=== PATIENT | male | born 1960 | race Caucasian/White ===

== ENCOUNTER 2021-07-22 12:13 | Inpatient (IN) | payer OTHER ==
[2021-07-22] MEDS ORDERED: SODIUM CHLORIDE 0.9% 1,000 ML IV STA (12:34)
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
[2021-07-22 12:54] LABS: Basophils # (A) 0.1 k/uL (0-0.2); Basophils % (A) 1 %; Eosinophils # (A) 0.1 k/uL (0-0.7); Eosinophils % (A) 1 %; HCT 38.4 % (39.0-53.0); Lymphocytes # (A) 1.4 k/uL (1.0-4.8); Lymphocytes % (A) 10 %; MCHC 31.3 g/dL (31.0-37.0); MCV 99.1 fL (80.0-100.0); Mean Platelet Volume 6.9; Monocytes # (A) 0.8 k/uL (0-1.0); Monocytes % (A) 6 %; Neutrophils % (A) 81 %; Platelet Count 430 k/uL (150-450); RBC 3.88 m/uL (4.30-5.90); WBC 13.7 k/uL (3.8-10.6)
[2021-07-22 13:04] LABS: ALT 15 U/L (4-49); AST 13 U/L (17-59); African American GFR (CKD) >90 (>60 ml/min/1.73 sqM); Albumin 3.7 g/dL (3.5-5.0); Alkaline Phosphatase 92 U/L (38-126); Anion Gap 8 mmol/L; Blood Urea Nitrogen 15 mg/dL (9-20); Calcium 9.6 mg/dL (8.4-10.2); Carbon Dioxide 26 mmol/L (22-30); Chloride 101 mmol/L (98-107); Glucose 108 mg/dL (74-99); Non-African American GFR(CKD) >90 (>60 ml/min/1.73 sqM); Sodium 135 mmol/L (137-145); Total Bilirubin 0.6 mg/dL (0.2-1.3); Total Protein 6.5 g/dL (6.3-8.2)
--- NOTE | 2021-07-22 14:08 | XR ---
EXAMINATION TYPE: XR tibia fibula LT DATE OF EXAM: 07/22/2021 CLINICAL HISTORY: Injury with pain and focal wound. TECHNIQUE: Two views of the left leg are obtained. COMPARISON: None. FINDINGS: There is intramedullary leah with 2 proximal fixating screws and 2 distal transverse fixatio n screws through healing fracture of the mid to distal tibial diaphysis. Alignment is satisfactory. S ome adjacent soft tissue calcifications are present medially. Mild focal soft tissue swelling anterio rly at this level. There is healing displaced fracture mid shaft of the fibular diaphysis. No obvious bony destruction to suggest acute osteomyelitis. Visualized portion of the ankle joints appear withi n normal limits. IMPRESSION: As above.
[2021-07-22] MEDS ORDERED: HYDROmorphone 0.5 MG/0.5 ML SYRINGE IVP STA (14:31)
[2021-07-22] MEDS ORDERED: VANCOMYCIN IV PER PHARMACY 1 EACH MISC MISCELLANE PRN ×2 (16:15→16:59)
[2021-07-22] MEDS ORDERED: ACETAMINOPHEN TAB 325 MG TAB PO PRN (16:16)
[2021-07-22] MEDS ORDERED: IBUPROFEN 400 MG TAB PO PRN (16:16)
[2021-07-22] MEDS ORDERED: NALOXONE 0.4 MG/ML 1 ML VIAL IV PRN (16:16)
[2021-07-22] MEDS ORDERED: VANCOMYCIN 1,000 MG in SODIUM CHLORIDE 0.9% 250 ML IVPB STA (16:21)
[2021-07-22] MEDS ORDERED: PIPERACILLIN-TAZOBACTAM 3.375 GM in SODIUM CHLORIDE 0.9% 100 ML IVPB STA (16:36)
[2021-07-22] MEDS ORDERED: ALPRAZolam 0.25 MG TAB PO PRN (16:58)
[2021-07-22] MEDS ORDERED: TEMAZEPAM 15 MG CAP PO PRN (16:58)
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
[2021-07-22] MEDS: haloperidoL 5 MG TAB PO SCH (22:02)
[2021-07-22] MEDS: NICOTINE 14MG/24HR PATCH TRANSDERM SCH (22:03)
[2021-07-22] MEDS: HEPARIN SODIUM,PORCINE/PF 5,000 UNIT/0.5 ML SYRINGE SQ SCH (22:03)
[2021-07-22] MEDS: HYDROcodone/APAP 5-325MG 1 EACH TAB PO PRN (22:14)
[2021-07-23] MEDS ORDERED: PIPERACILLIN-TAZOBACTAM 3.375 GM in SODIUM CHLORIDE 0.9% 100 ML IVPB SCH ×2
[2021-07-23] MEDS: CEFEPIME 2 GM in SODIUM CHLORIDE 0.9% 100 ML IVPB SCH ×4 (00:08→23:33)
[2021-07-23] MEDS: VANCOMYCIN 1,000 MG in SODIUM CHLORIDE 0.9% 250 ML IVPB SCH ×2 (05:36→16:44)
[2021-07-23] MEDS: HYDROcodone/APAP 5-325MG 1 EACH TAB PO PRN ×3 (08:06→20:41)
[2021-07-23] MEDS: PANTOPRAZOLE 40 MG TABLET PO SCH (08:08)
[2021-07-23] MEDS: HEPARIN SODIUM,PORCINE/PF 5,000 UNIT/0.5 ML SYRINGE SQ SCH ×2 (08:08→20:38)
[2021-07-23] MEDS: NICOTINE 14MG/24HR PATCH TRANSDERM SCH (08:08)
[2021-07-23] MEDS: haloperidoL 5 MG TAB PO SCH ×2 (08:08→20:39)
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
[2021-07-23] MEDS: MULTIVITAMINS, THERA 1 EACH TAB PO SCH (11:29)
[2021-07-23 12:31] LABS: African American GFR (CKD) 118.9 (60.0-200.0); Anion Gap 18.7 mmol/L (10.00-18.00); BUN/Creat Ratio 18.57 Ratio (12.00-20.00); Calcium 8.8 mg/dL (8.7-10.3); Carbon Dioxide 16.3 mmol/L (20.0-27.5); Non-African American GFR(CKD) 102.6 (60.0-200.0); Potassium 3.5 mmol/L (3.5-5.5)
[2021-07-23 13:29] VITALS: BMI 17.1
[2021-07-23 13:41] LABS: Basophils # (A) 0.07 X 10*3/uL (0.00-0.10); Basophils % (A) 0.7 %; Eosinophils # (A) 0.11 X 10*3/uL (0.04-0.35); Eosinophils % (A) 1.1 %; HCT 33.3 % (39.6-50.0); HGB 10.5 g/dL (13.0-17.0); Lymphocytes # (A) 1.61 X 10*3/uL (0.90-5.00); Lymphocytes % (A) 15.5 %; MCH 30.6 pg (27.0-32.0); MCHC 31.5 g/dL (32.0-37.0); MCV 97.1 fL (80.0-97.0); Mean Platelet Volume 9.7 fL (9.5-12.2); Monocytes # (A) 0.55 X 10*3/uL (0.20-1.00); Monocytes % (A) 5.3 %; Neutrophils # (A) 7.98 X 10*3/uL (1.80-7.70); Neutrophils % (A) 76.9 %; Platelet Count 413 X 10*3/uL (140-440); RBC 3.43 X 10*6/uL (4.40-5.60); RDW 14.6 % (11.5-14.5); WBC 10.37 X 10*3/uL (4.50-10.00)
[2021-07-23 15:06] LABS: Erythrocyte Sedimentation Rate 35 mm/Hr (0-20)
--- NOTE | 2021-07-23 16:48 | PN ---
PROGRESS NOTE DATE OF SERVICE: 07/23/2021 REASON FOR FOLLOWUP: Left lower extremity wound and cellulitis. INTERVAL HISTORY: The patient is afebrile. The patient is currently breathing comfortably. Pain to the left leg is slightly decreased. No chest pain, shortness of breath or cough. No abdominal pain or diarrhea. PHYSICAL EXAMINATION: Blood pressure 120/82 with a pulse of 90, temperature 98. He is 98% on room air. General description is a middle-aged male lying in bed in no distress. Respiratory system: Unlabored breathing, clear to auscultation anteriorly. Heart S1, S2. Regular rate and rhythm. Abdomen soft, no tenderness. Left leg is currently dressed, no obvious drainage on the dressing. LABS: Hemoglobin is 10.5, white count 10.37, creatinine 0.7. DIAGNOSTIC IMPRESSION AND PLAN: Patient with left leg wound, necrotic with recent extensive surgery in the outside facility with underlying necrotic tissue, unable determine the depth of this infection and deep cultures. Continue vancomycin and cefepime and monitor clinical course closely. MMODL / IJN: [id number] / MTDD
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
[2021-07-24] MEDS: VANCOMYCIN 1,000 MG in SODIUM CHLORIDE 0.9% 250 ML IVPB SCH ×2 (04:30→17:17)
[2021-07-24] MEDS: HYDROmorphone 0.5 MG/0.5 ML SYRINGE IVP PRN ×2 (04:53→20:08)
[2021-07-24] MEDS: PANTOPRAZOLE 40 MG TABLET PO SCH (06:49)
[2021-07-24] MEDS: HEPARIN SODIUM,PORCINE/PF 5,000 UNIT/0.5 ML SYRINGE SQ SCH ×2 (06:49→20:09)
[2021-07-24] MEDS: NICOTINE 14MG/24HR PATCH TRANSDERM SCH (06:51)
[2021-07-24] MEDS: CEFEPIME 2 GM in SODIUM CHLORIDE 0.9% 100 ML IVPB SCH ×2 (06:52→16:12)
[2021-07-24] MEDS ORDERED: PROPOFOL 10 MG/ML 20 ML VIAL IV ONE (08:26)
[2021-07-24] MEDS ORDERED: MIDAZOLAM 2 MG/2 ML VIAL ONE (08:26)
[2021-07-24] MEDS ORDERED: fentaNYL (PF) 50 MCG/ML 2 ML AMP ONE (08:26)
[2021-07-24] MEDS ORDERED: SUCCINYLCHOLINE CHLORIDE VIAL 200 MG/10 ML VIAL IV ONE (08:26)
[2021-07-24] MEDS ORDERED: IV FLUID CONTINUATION 900 ML IV ONE (08:26)
[2021-07-24] MEDS ORDERED: LIDOCAINE 1% INJ 10MG/ML (20 ML MDV) ONE (08:26)
[2021-07-24] MEDS ORDERED: ceFAZolin 3,000 MG in SODIUM CHLORIDE 0.9% IRRIGATIO 3,000 ML IRRIGATION ONE (08:46)
[2021-07-24] MEDS: haloperidoL 5 MG TAB PO SCH ×2 (10:06→20:09)
[2021-07-24] MEDS: MULTIVITAMINS, THERA 1 EACH TAB PO SCH (10:06)
[2021-07-24] MEDS: HYDROcodone/APAP 5-325MG 1 EACH TAB PO PRN (14:57)
[2021-07-24] MEDS ORDERED: VANCOMYCIN TROUGH DUE 1 EACH MISC MISCELLANE ONE (16:00)
[2021-07-24] MEDS: THIAMINE 100 MG TAB PO SCH (16:12)
[2021-07-24] MEDS: FOLIC ACID 1 MG TAB PO SCH (16:12)
[2021-07-24 17:40] LABS: African American GFR (CKD) >90 (>60 ml/min/1.73 sqM); Anion Gap 8 mmol/L; Blood Urea Nitrogen 20 mg/dL (9-20); Calcium 9.3 mg/dL (8.4-10.2); Carbon Dioxide 27 mmol/L (22-30); Chloride 101 mmol/L (98-107); Glucose 124 mg/dL (74-99); Non-African American GFR(CKD) 89 (>60 ml/min/1.73 sqM); Sodium 136 mmol/L (137-145)
--- NOTE | 2021-07-24 18:16 | PN ---
PROGRESS NOTE DATE OF SERVICE: 07/24/2021 This 60-year-old gentleman who was admitted with significant infection of the left leg area had incision and drainage and wound VAC by Orthopedic Surgery. No chest pain. No palpitations. No fever. PHYSICAL EXAMINATION: Alert and oriented x3. Pulse 96, blood pressure 130/70, respiration 17, temperature 97.8, pulse ox 98% on room air. HEENT: Conjunctivae normal. Oral mucosa moist. NECK: No jugular venous distention. No lymph node enlargement. CARDIOVASCULAR: S1, S2, muffled. No S3, no S4, RESPIRATORY: Diminished breath sounds at the bases. ABDOMEN: Soft, nontender. LEGS: Left leg infection and abscess status post incision and drainage and wound VAC.. LABS: WBC 10.37, hemoglobin 10.5. CRP is 13. ASSESSMENT: 1. Left leg ulcer with possible osteomyelitis with early sepsis with MSSA and gram negative bacilli, present on admission, status post debridement and as well as wound VAC placement. 2. Severe pain. 3. History of recent open tibial femoral fracture and surgery. 4. Increased WBC. 5. Anemia, normocytic. 6. Hyponatremia. 7. History nicotine dependence. 8. History of narcolepsy. 9. Mild protein-calorie malnutrition, BMI of 17.6. 10.FULL CODE. RECOMMENDATIONS: Recommend to continue current management, continue symptomatic treatment. Otherwise, at this time I would also recommend continue the antibiotics. The culture is showing Staph aureus and gram-negative bacilli. Guarded prognosis. Further recommendations to follow. MMODL / IJN: [id number] /
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
--- NOTE | 2021-07-24 20:22 | PN ---
PROGRESS NOTE DATE OF SERVICE: 07/24/2021 REASON FOR FOLLOWUP: Left leg wound and a question of underlying osteomyelitis. INTERVAL HISTORY: The patient was taken to the OR. The patient is status post debridement of left leg wound. The depth of infection currently not available; operative report is pending. Patient tolerated the procedure. Has been complaining of some headache. No chest pain, shortness of breath or cough. No abdominal pain or diarrhea. PHYSICAL EXAMINATION: Blood pressure 113/75, pulse of 96, temperature 97.8. He is 98% on room air. General description is a middle-aged male lying in bed in no distress. Respiratory system: Unlabored breathing. Clear to auscultation anteriorly. Heart S1, S2. Regular rate and rhythm. Abdomen soft, no tenderness. Left leg wound is currently covered with a wound V.A.C. LABS: Creatinine 0.93. Vancomycin trough is low. DIAGNOSTIC IMPRESSION AND PLAN: Patient with left leg wound infection with recent extensive surgery for left leg infection. Will wait for the operative report to determine the depth of infection and will wait for the deep culture to finalize to determine his discharge antibiotics. He will likely need a PICC line for outpatient IV antibiotics and local wound care. Continue supportive care. MMODL / IJN: [id number] /
[2021-07-25] MEDS: CEFEPIME 2 GM in SODIUM CHLORIDE 0.9% 100 ML IVPB SCH ×2 (00:20→08:05)
[2021-07-25] MEDS: HYDROmorphone 0.5 MG/0.5 ML SYRINGE IVP PRN ×2 (03:18→06:06)
[2021-07-25] MEDS ORDERED: VANCOMYCIN 1,250 MG in SODIUM CHLORIDE 0.9% 250 ML IVPB SCH (06:00)
[2021-07-25 06:05] LABS: African American GFR (CKD) >90 (>60 ml/min/1.73 sqM); Anion Gap 6 mmol/L; Blood Urea Nitrogen 20 mg/dL (9-20); Calcium 9.5 mg/dL (8.4-10.2); Carbon Dioxide 27 mmol/L (22-30); Chloride 101 mmol/L (98-107); Glucose 96 mg/dL (74-99); Non-African American GFR(CKD) >90 (>60 ml/min/1.73 sqM); Potassium 4.8 mmol/L (3.5-5.1); Sodium 134 mmol/L (137-145)
[2021-07-25] MEDS: MULTIVITAMINS, THERA 1 EACH TAB PO SCH (08:05)
[2021-07-25] MEDS: PANTOPRAZOLE 40 MG TABLET PO SCH (08:05)
[2021-07-25] MEDS: haloperidoL 5 MG TAB PO SCH ×2 (08:05→21:01)
[2021-07-25] MEDS: FOLIC ACID 1 MG TAB PO SCH (08:05)
[2021-07-25] MEDS: THIAMINE 100 MG TAB PO SCH (08:06)
[2021-07-25] MEDS: HEPARIN SODIUM,PORCINE/PF 5,000 UNIT/0.5 ML SYRINGE SQ SCH ×2 (08:06→21:01)
[2021-07-25] MEDS: NICOTINE 14MG/24HR PATCH TRANSDERM SCH (08:06)
[2021-07-25] MEDS: HYDROcodone/APAP 5-325MG 1 EACH TAB PO PRN ×2 (12:32→19:20)
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
--- NOTE | 2021-07-25 17:26 | PN ---
PROGRESS NOTE DATE OF SERVICE: 07/25/2021. This 60-year-old gentleman who was admitted with left leg ulcer and possible osteomyelitis and had debridement and as well as wound VAC. The cultures are showing multiple organisms including Staph aureus and Klebsiella . The Staph aureus is MSSA. No chest pain. No palpitations. No fever. PHYSICAL EXAMINATION: Alert and oriented times three. Pulse is 89, blood pressure 130/79, respirations 18, temperature 97.9, pulse ox 97% on room air. HEENT: Conjunctivae normal. Neck: No JVD. Cardiovascular: S1, S2 muffled. Respiratory System: Breath sounds diminished at the bases. Scattered rhonchi. Abdomen: Soft. Legs: Left leg ulcer and wound VAC present. LABS: WBC 10.37, sodium is 134. Other labs are noted. ASSESSMENT: 1. Left leg ulcer with osteomyelitis with early sepsis with MSSA and as well as Klebsiella oxytoca, present on admission, status post debridement and as well as wound VAC placement. 2. Severe pain. 3. History of recent open tibial femoral fracture and surgery. 4. Increased WBC. 5. Anemia, normocytic. 6. Hyponatremia. 7. History of nicotine dependence. 8. History of narcolepsy. 9. Mild protein-calorie malnutrition, BMI of 17.6. 10.FULL CODE. RECOMMENDATIONS AND DISCUSSION: Recommend to continue current medications, management and symptomatic treatment. Otherwise, continue the antibiotics. Closely follow with Infectious Disease and Orthopedic surgery. Prognosis guarded because of multiple complex medical issues. Further recommendations to follow. MMODL / IJN: [id number] /
[2021-07-26] MEDS: HEPARIN SODIUM,PORCINE/PF 5,000 UNIT/0.5 ML SYRINGE SQ SCH ×2 (08:36→19:57)
[2021-07-26] MEDS: FOLIC ACID 1 MG TAB PO SCH (08:37)
[2021-07-26] MEDS: THIAMINE 100 MG TAB PO SCH (08:37)
[2021-07-26] MEDS: PANTOPRAZOLE 40 MG TABLET PO SCH (08:37)
[2021-07-26] MEDS: NICOTINE 14MG/24HR PATCH TRANSDERM SCH (08:37)
[2021-07-26] MEDS: MULTIVITAMINS, THERA 1 EACH TAB PO SCH (08:37)
[2021-07-26] MEDS: HYDROcodone/APAP 5-325MG 1 EACH TAB PO PRN ×3 (08:37→19:57)
[2021-07-26] MEDS: haloperidoL 5 MG TAB PO SCH ×2 (08:38→19:57)
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
--- NOTE | 2021-07-26 12:53 | P.PN ---
Progress Note - Text Progress Note Date: 07/25/21 REASON FOR FOLLOWUP: Left leg wound and a question of underlying osteomyelitis. INTERVAL HISTORY: The patient is afebrile. pain to the left leg is currently controlled, No chest pain, shortness of breath or cough. No abdominal pain or diarrhea. PHYSICAL EXAMINATION: Blood pressure 110/70, pulse of 86, temperature 97.8. He is 98% on room air. General description is a middle-aged male lying in bed in no distress. Respiratory system: Unlabored breathing. Clear to auscultation anteriorly. Heart S1, S2. Regular rate and rhythm. Abdomen soft, no tenderness. Left leg wound is currently covered with a wound V.A.C. LABS: cultures with MSSA and Klebsiella. DIAGNOSTIC IMPRESSION AND PLAN: Patient with left leg wound infection with recent extensive surgery for left leg fracture. s/p debridment with wound not extending to the bone or any exposed hardware, cultures with MSSA and Klebsiella , Antibiotics will be switched to cefazolin , He will likely need a PICC line for outpatient IV antibiotics and local wound care. Continue supportive care.
--- NOTE | 2021-07-26 15:14 | P.PN ---
Subjective Progress Note Date: 07/26/21 07/26/2021 Patient evaluated today resting in bed. PT OT consultation recommends patient to go to subacute rehab on discharge. He does have quite a bit of pain to the left mercedes he is receiving [place] every 4 hours, Dilaudid every 3 hours as well as Motrin every 6 as needed. Wound VAC was changed today. Patient will get a PICC line either today or tomorrow and will hopefully [facility]. Sodium today 134, encourage oral intake preferably water. Blood pressure 122/88, afebrile, heart rate 89, 96% on room air. Wound care instructions are to change Sunday, negative pressure with black foam. Alternatively if wound VAC is not available for discharge planning obstructive silver, saline moist gauze, dry gauze, rolled gauze and secure paper tape as recommended by wound care. Patient is being followed closely by orthopedic and ID services. ROS Constitutional: Denied any fatigue denied any fever. Cardio vascular: denied any chest pain, palpitations Gastrointestinal denied any nausea vomiting Pulmonary: Denied any shortness of breath cough Neurologic denied any new focal deficits All inpatient medications were reviewed and appropriate changes in these m edications as dictated in the interval history and assessment and plan. PHYSICAL EXAMINATION: GENERAL: The patient is alert and oriented x3, not in any acute distress. Well developed, well nourished. HEENT: Pupils are round and equally reacting to light. EOMI. No scleral icterus. No conjunctival pallor. Normocephalic, atraumatic. No pharyngeal erythema. No thyromegaly. CARDIOVASCULAR: S1 and S2 present. No murmurs, rubs, or gallops. PULMONARY: Chest is clear to auscultation, no wheezing or crackles. ABDOMEN: Soft, nontender, nondistended, normoactive bowel sounds. No palpable organomegaly. MUSCULOSKELETAL: No joint swelling or deformity. EXTREMITIES: No cyanosis, clubbing, no peripheral edema to left lower extremity positive pulses NEUROLOGICAL: Gross neurological examination did not reveal any focal deficits. SKIN: Wound VAC present to left mercedes Assessment and plan Assessment Left foot ulcer with osteomyelitis with early sepsis with MSSA and Klebsiella oxytoca, present on admission, status post debridement and wound VAC placement Severe pain, pain management in place History of recent open tib femoral fracture and surgery Leukocytosis secondary to infection Hyponatremia probably due to poor oral intake History of narcolepsy GI prophylaxis Protonix DVT prophylaxis subcu heparin Full code Plan Take insertion Continue IV antibiotics Continue pain management Encourage oral intake Continue all other supportive care Discharge to rehab tomorrow Objective - Vital Signs Vital signs: Vital Signs Temp 97.9 F 07/26/21 07:27 Pulse 89 07/26/21 12:39 Resp 16 07/26/21 12:39 BP 139/90 07/26/21 07:27 Pulse Ox 98 07/26/21 07:27 Intake & Output 07/25/21 07/26/21 07/26/21 18:59 06:59 18:59 Intake Total 1080 Output Total 850 900 Balance 230 -900 Weight 58.967 kg Intake: Oral 1080 Output: Urine 850 900 Other: Voiding Method Urinal Urinal # Voids 1 - Labs CBC & Chem 7: 07/23/21 08:21 07/25/21 04:01 Labs: Microbiology - Last 24 Hours (Table) 07/24/21 08:43 Gram Stain - Final Leg - Left Wound Culture - Final Staphylococcus aureus 07/24/21 08:43 Gram Stain - Final Leg - Left Wound Culture - Final Staphylococcus aureus 07/22/21 12:30 Blood Culture - Preliminary Blood No Growth after 72 hours 07/22/21 12:15 Blood Culture - Preliminary Blood No Growth after 72 hours 07/22/21 12:38 Gram Stain - Final Leg - Left Wound Culture - Final Staphylococcus aureus Klebsiella oxytoca
--- NOTE | 2021-07-26 23:17 | P.PN ---
Progress Note - Text Progress Note Date: 07/26/21 REASON FOR FOLLOWUP: Left leg wound and a question of underlying osteomyelitis. INTERVAL HISTORY: The patient is afebrile. pain to the left leg is currently controlled, No chest pain, shortness of breath or cough. No abdominal pain or diarrhea. PHYSICAL EXAMINATION: Blood pressure 110/70, pulse of 86, temperature 97.8. He is 98% on room air. General description is a middle-aged male lying in bed in no distress. Respiratory system: Unlabored breathing. Clear to auscultation anteriorly. Heart S1, S2. Regular rate and rhythm. Abdomen soft, no tenderness. Left leg wound is currently covered with a wound V.A.C. LABS: cultures with MSSA and Klebsiella. DIAGNOSTIC IMPRESSION AND PLAN: Patient with left leg wound infection with recent extensive surgery for left leg fracture. s/p debridment with wound not extending to the bone or any exposed hardware, cultures with MSSA and Klebsiella , Antibiotics will be switched to cefazolin , He will likely need a PICC line for outpatient IV antibiotics and local wound care. Continue supportive care.
--- NOTE | 2021-07-26 23:19 | P.PN ---
Progress Note - Text Progress Note Date: 07/26/21 REASON FOR FOLLOWUP: Left leg wound and a question of underlying osteomyelitis. INTERVAL HISTORY: The patient remains to be afebrile. The patient pain to the left leg is currently controlled, the patient denies chest pain, shortness of breath or cough. No abdominal pain or diarrhea. PHYSICAL EXAMINATION: Blood pressure 1:15/60, pulse of 86, temperature 97.8. He is 98% on room air. General description is a middle-aged male lying in bed in no distress. Respiratory system: Unlabored breathing. Clear to auscultation anteriorly. Heart S1, S2. Regular rate and rhythm. Abdomen soft, no tenderness. Left leg wound is currently covered with a wound V.A.C. LABS: cultures with MSSA and Klebsiella. White count has normalized DIAGNOSTIC IMPRESSION AND PLAN: Patient with left leg wound infection with recent extensive surgery for left leg fracture. s/p debridment with wound not extending to the bone or any exposed hardware, cultures with MSSA and Klebsiella , patient is currently covered with cefazolin, Plan is for 2-3 weeks of IV cefazolin, local wound care with a wound vac to close outpatient follow-up
[2021-07-27] MEDS: HYDROcodone/APAP 5-325MG 1 EACH TAB PO PRN ×2 (04:01→15:03)
[2021-07-27] MEDS ORDERED: THIAMINE 100 MG TAB ONE (09:00)
[2021-07-27] MEDS ORDERED: haloperidoL 5 MG TAB ONE (09:00)
[2021-07-27] MEDS ORDERED: HEPARIN SODIUM,PORCINE 5,000 UNIT/ML 1 ML VIAL ONE (09:00)
[2021-07-27] MEDS ORDERED: PANTOPRAZOLE 40 MG TABLET PO ONE (09:00)
[2021-07-27] MEDS ORDERED: NICOTINE 14MG/24HR PATCH TRANSDERM ONE (09:00)
[2021-07-27] MEDS ORDERED: FOLIC ACID 1 MG TAB ONE (09:00)
[2021-07-27 09:33] LABS: Basophils # (A) 0.07 X 10*3/uL (0.00-0.10); Basophils % (A) 0.9 %; Eosinophils # (A) 0.45 X 10*3/uL (0.04-0.35); Eosinophils % (A) 5.7 %; HCT 38.1 % (39.6-50.0); HGB 11.8 g/dL (13.0-17.0); Lymphocytes # (A) 1.46 X 10*3/uL (0.90-5.00); Lymphocytes % (A) 18.6 %; MCH 29.6 pg (27.0-32.0); MCV 95.7 fL (80.0-97.0); Mean Platelet Volume 9.4 fL (9.5-12.2); Monocytes # (A) 0.65 X 10*3/uL (0.20-1.00); Monocytes % (A) 8.3 %; Neutrophils # (A) 5.21 X 10*3/uL (1.80-7.70); Neutrophils % (A) 66.2 %; Platelet Count 493 X 10*3/uL (140-440); RBC 3.98 X 10*6/uL (4.40-5.60); RDW 13.8 % (11.5-14.5); WBC 7.86 X 10*3/uL (4.50-10.00)
[2021-07-27 11:39] LABS: African American GFR (CKD) 114.2 (60.0-200.0); Anion Gap 12.6 mmol/L (10.00-18.00); BUN/Creat Ratio 25.65 Ratio (12.00-20.00); Blood Urea Nitrogen 19.8 mg/dL (9.0-27.0); Calcium 10.1 mg/dL (8.7-10.3); Carbon Dioxide 25.7 mmol/L (20.0-27.5); Non-African American GFR(CKD) 98.5 (60.0-200.0); Potassium 4.8 mmol/L (3.5-5.5)
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
[2021-07-27] MEDS: MULTIVITAMINS, THERA 1 EACH TAB PO SCH (12:01)
[2021-07-27] MEDS: haloperidoL 5 MG TAB PO SCH (13:09)
[2021-07-27] MEDS: FOLIC ACID 1 MG TAB PO SCH (13:09)
[2021-07-27] MEDS: THIAMINE 100 MG TAB PO SCH (13:09)
[2021-07-27] MEDS: HEPARIN SODIUM,PORCINE/PF 5,000 UNIT/0.5 ML SYRINGE SQ SCH (13:09)
[2021-07-27] MEDS: PANTOPRAZOLE 40 MG TABLET PO SCH (13:09)
[2021-07-27] MEDS: NICOTINE 14MG/24HR PATCH TRANSDERM SCH (13:10)
[2021-07-27] MEDS ORDERED: LIDOCAINE 1% INJ 10MG/ML (20 ML MDV) ONE (13:54)
--- NOTE | 2021-07-27 14:06 | P.PN ---
Progress Note - Text Progress Note Date: 07/27/21 REASON FOR FOLLOWUP: Left leg wound infection/MSSA. INTERVAL HISTORY: The patient continues to be afebrile. The patient pain to the left leg is currently controlled with the current pain medication, the patient denies chest pain, shortness of breath or cough. No abdominal pain or diarrhea. PHYSICAL EXAMINATION: Blood pressure 120/60, pulse of 80, temperature 97.8. He is 98% on room air. General description is a middle-aged male lying in bed in no distress. Respiratory system: Unlabored breathing. Clear to auscultation anteriorly. Heart S1, S2. Regular rate and rhythm. Abdomen soft, no tenderness. Left leg wound is currently covered with a wound V.A.C. LABS: cultures with MSSA and Klebsiella. White count 7.8 DIAGNOSTIC IMPRESSION AND PLAN: Patient with left leg wound infection with recent extensive surgery for left leg fracture. s/p debridment with wound not extending to the bone or any exposed hardware,cultures with MSSA and Klebsiella , patient is currently covered with cefazolin, Plan is for 3 weeks of IV cefazolin 2 g every 8 hours, local wound care with a wound vac to close outpatient follow-up with Dr. Alaniz in the wound care center next week
[2021-07-27] MEDS ORDERED: LIDOCAINE 1% INJ 10MG/ML (20 ML MDV) SQ ONE (14:15)
--- NOTE | 2021-07-27 14:43 | IR ---
PICC LINE PLACEMENT: HISTORY: Infection requiring long-term antibiotic therapy PROCEDURE: Ultrasound and fluoroscopic guidance of PICC line placement. COMPLICATIONS: None ANESTHESIA: 1. 1% Lidocaine locally. FINDINGS/TECHNIQUE: The procedure was explained to the patient. The risks, complications, benefits and alternatives were discussed and any questions were answered. Informed consent was obtained. The patient was placed supine on the fluoroscopic table and prepped and draped in the usual sterile fash ion. Utilizing a 21 gauge needle and sonographic and fluoroscopic guidance, access in the left basi lic vein was achieved and there is placement of a 0.018 guidewire. The vein is patent. A 4-F sheath was placed over the guidewire. The guidewire and dilator were removed and a 4-F. PICC line was plac ed through the sheath with the tip at the level of the SVC. The sheath was removed, the catheter was flushed and sutured into position. The patient was stable throughout the procedure and remained sta ble upon discharge from the Department of Radiology. The vein puncture was patent under ultrasound. A krueger scale image was obtained to document patency of the vein punctured. All elements of the maximal barrier technique were utilized. FLUOROSCOPY TIME: 0.1 minutes and one images submitted IMPRESSION: Successful PICC line placement under ultrasound and fluoroscopic guidance.
[2021-07-27 15:05] VITALS: BP 125/84; PULSE 96; RESP 16; TEMP 97.7
--- NOTE | 2021-07-29 15:21 | CDI ---
Documentation Clarification Form Date: 07/29/2021 From: MARITZA Jay Admit Date: 07/22/2021 04:21:00 PM Patient Name: Timothy Allen Visit Number: [id number] Discharge Date: 07/27/2021 05:44:00 PM ATTENTION: The Clinical Documentation Specialists (CDI) and [facility] Coding Staff appreciate your assistance in clarifying documentation. Please respond to the clarification below the line at the bottom and electronically sign. The CDI & [facility] Coding staff will review the response and follow-up if needed. Please note: Queries are made part of the Legal Health Record. If you have any questions, please contact the author of this message via ITS. Dr. Savage Reilly A debridement is documented on 07/24/21. Additional clarification regarding the procedure is requested. History/Risk Factors: Infection, left leg wound, status post open tibia/fibula fracture Treatment: Irrigation and debridement, left leg wound I did a sharp debridement of the eschar with a 15 blade scalpel. There was some necrotic tissue. This was all subcutaneous and at the muscular layer. This was debrided sharply with a 15 blade scalpel as well as with a curette. Please clarify the type of procedure performed: [ ] Excisional debridement (the removal of necrotic, devitalized tissue or slough by means of cutting away of tissue) [ ] Non-excisional debridement (the removal of necrotic, devitalized tissue or slough by means of flushing, brushing, or washing. (Irrigation) [ ] Other; please specify [ ] Unable to determine Five elements required for accurate and compliant documentation of a debridement: Technique used (e.g., excisional, excised, cutting, brushing, jet lavage etc.) Instrument(s) used (e.g., scalpel, curette, etc.) Nature of the tissue removed (e.g., necrotic, devitalized tissues, non-viable tissue, etc.) Appearance and size of the wound (e.g., down to fresh bleeding tissue, 7cm x 10cm, etc.) Depth of the debridement* (e.g., skin, subcutaneous tissue, fascia, muscle, bone, etc.) It was an excisional debridement with a scalpel. I think the op note is fairly complete in this regard. MTDD
== END 2021-07-27 17:44 | DRG 854 ==
LOC: EC 12:13 → 4SSUR 16:21
PROVIDERS: ADMIT Hospitalist; ATTEND Hospitalist
PROC: 0KBT0ZZ Excision of Left Lower Leg Muscle, Open Approach (ICD-10-PCS; principal; 2021-07-24 08:00)
PROC: 02HV33Z Insertion of Infusion Device into Superior Vena Cava, Percutaneous Approach (ICD-10-PCS; 2021-07-27)
PROC: B518YZA Fluoroscopy of Superior Vena Cava using Other Contrast, Guidance (ICD-10-PCS; 2021-07-27)
DX: A41.01 Sepsis due to Methicillin susceptible Staphylococcus aureus (principal); L03.116 Cellulitis of left lower limb; E44.1 Mild protein-calorie malnutrition; Z68.1 Body mass index [BMI] 19.9 or less, adult; E87.1 Hypo-osmolality and hyponatremia; M86.8X7 Other osteomyelitis, ankle and foot; L97.823 Non-pressure chronic ulcer of other part of left lower leg with necrosis of muscle; G47.419 Narcolepsy without cataplexy; D64.9 Anemia, unspecified; F17.200 Nicotine dependence, unspecified, uncomplicated; L97.529 Non-pressure chronic ulcer of other part of left foot with unspecified severity; Z79.82 Long term (current) use of aspirin; Z79.899 Other long term (current) drug therapy
CPT/HCPCS: 36415; 36573; 80048; 80053; 80202; 83605; 85025; 85652; 86140; 87040; 87070; 87075; 87077; 87186; 87205; 96365; 96375; 99285